=== PATIENT | male | born 1965 ===

== ENCOUNTER 2016-10-28 17:07 | Emergency (ER) | payer MEDICAID, OTHER, SELFPAY ==
[2016-10-28 17:22] VITALS: BP 136/98; PULSE 74; RESP 18; TEMP 97.9; O2SAT 99
--- NOTE | 2016-10-28 17:54 | ED PDOC ---
HPI: Hypertension/Hypotension Time Seen by Provider: 10/28/16 17:15 Chief Complaint (Nursing): High Blood Pressure Chief Complaint (Provider): hypertension, lt sided facial numbness History Per: Patient History/Exam Limitations: no limitations Onset/Duration Of Symptoms: Days, Persistent Current Symptoms Are (Timing): Still Present Additional Complaint(s): The patient is a 51yo male, sent to the ED by clinic for evaluation of hypertension as well as left sided facial numbness. Patient reports he went to the clinic for evaluation of left sided facial numbness, which has been present for the past 6 months. Patient then states when his blood pressure was check, it initially was normal but 30 minutes after his stay in the facility, the blood pressure was elevated, prompting concern to the patient's provider. The patient states he has a history of hypertension but he controlled it with changes in diet and exercise; he denies using any medications for his hypertension. Patient currently denies any chest pain, lightheadedness. He offers no additional medical complaints. Past Medical History Reviewed: Historical Data, Nursing Documentation, Vital Signs Vital Signs: Last Vital Signs Temp 97.9 F 10/28/16 17:16 Pulse 74 10/28/16 17:16 Resp 18 10/28/16 17:16 BP 136/98 H 10/28/16 17:16 Pulse Ox 99 10/28/16 17:16 - Medical History PMH: HTN (controlled w/ exercise and diet) Denies: Asthma, Diabetes - Surgical History Surgical History: No Surg Hx - Family History Family History: States: Unknown Family Hx - Social History Current smoker - smoking cessation education provided: No Alcohol: None Drugs: Denies - Home Medications Home Medications: Ambulatory Orders Medication Instructions Recorded No Known Home Med 10/28/16 - Allergies Allergies/Adverse Reactions: Allergies Allergy/AdvReac Type Severity Reaction Status Date / Time No Known Allergies Allergy Verified 10/28/16 18:12 Review of Systems ROS Statement: Except As Marked, All Systems Reviewed And Found Negative Cardiovascular: Positive for: Other (changes in blood pressure). Negative for: Chest Pain Neurological: Positive for: Other (left sided facial numbness) Physical Exam - Reviewed Nursing Documentation Reviewed: Yes Vital Signs Reviewed: Yes - Physical Exam Appears: Positive for: Well, Non-toxic, No Acute Distress Head Exam: Positive for: ATRAUMATIC, NORMAL INSPECTION, NORMOCEPHALIC Skin: Positive for: Normal Color, Warm, DRY Eye Exam: Positive for: EOMI, Normal appearance, PERRL ENT: Positive for: Normal ENT Inspection Neck: Positive for: Normal, Supple Cardiovascular/Chest: Positive for: Regular Rate, Rhythm Respiratory: Positive for: Normal Breath Sounds. Negative for: Respiratory Distress Gastrointestinal/Abdominal: Positive for: Normal Exam, Soft. Negative for: Tenderness Extremity: Positive for: Normal ROM, Other (5/5 motor strength in all extremities). Negative for: Deformity, Swelling Neurologic/Psych: Positive for: Alert, gear tester II-XII (intact), Oriented, Mood/ Affect (normal), Cerebellar Tests (normal), Gait (normal). Negative for: Motor/ Sensory Deficits, Aphasia, Facial Droop - Laboratory Results Result Diagrams: 10/28/16 18:20 10/28/16 18:20 - ECG O2 Sat by Pulse Oximetry: 99 (RA) Pulse Ox Interpretation: Normal Medical Decision Making Medical Decision Making: Time: 1744 Impression: Hypertension, left sided facial numbness (resolved) Plan: -- CT Head -- Labs Reassess exam is neurologically normal Time: 2030 CT Head Impression: No acute intracranial abnormalities. No significant findings to account for the clinical presentation. Blood pressure improved at 136/98. Patient reports feeling better, states no numbness or tingling stable for discharge home. Advised to follow up with PCP in 1-2 days and referred to neurologist outpt return if symptoms worsen Scribe Attestation: Documented by Mei Winchester acting as a scribe for Radha Iyer MD. Provider Attestation: All medical record entries made by the Scribe were at my direction and personally dictated by me. I have reviewed the chart and agree that the record accurately reflects my personal performance of the history, physical exam, medical decision making, and the department course for this patient. I have also personally directed, reviewed, and agree with the discharge instructions and disposition. Disposition - Clinical Impression Clinical Impression: Hypertension - Patient ED Disposition Is Patient to be Admitted: No Counseled Patient/Family Regarding: Studies Performed, Diagnosis, Need For Followup - Disposition [facility] [Outside] John Lugo MD [Staff Provider] - Disposition: Routine/Home Disposition Time: 19:45 Condition: IMPROVED Additional Instructions: follow up with your primary doctor in 1-2 days also follow up with neurologist as instructed return to the ED with any worsening or concerning symptoms. Instructions: Hypertension (ED)
[2016-10-28 18:44] LABS: BASO % 0.7 % (0.0-2.0); EOS % 0.7 % (0.0-4.0); HEMATOCRIT 44.7 % (35.0-51.0); LYMPH # 2.3 K/uL (1.0-4.3); LYMPH % 41.4 % (20.0-40.0); MEAN CELL VOLUME 90.4 fl (80.0-94.0); MEAN CORPUSCULAR HEMOGLOBIN 30.5 pg (27.0-31.0); MEAN CORPUSCULAR HGB CONC 33.7 g/dL (33.0-37.0); MEAN PLATELET VOLUME 8.2 fl (7.2-11.7); MONO # 0.6 K/uL (0.0-0.8); MONO % 10.7 % (0.0-10.0); NEUT # 2.6 K/uL (1.8-7.0); NEUT % 46.5 % (50.0-75.0); NRBC % 0.1 % (0.0-0.0); RED CELL DISTRIBUTION WIDTH 13.2 % (11.5-14.5); WHITE BLOOD COUNT 5.6 K/uL (4.8-10.8)
[2016-10-28 18:50] LABS: ALB/GLOB RATIO 1.3 (1.0-2.1); ALKALINE PHOSPHATASE 47 U/L (38-126); ALT/SGPT 51 U/L (21-72); AST/SGOT 31 U/L (17-59); BILIRUBIN,TOTAL 0.7 mg/dl (0.2-1.3); BLOOD UREA NITROGEN 18 mg/dl (9-20); CALCIUM 9.7 mg/dL (8.4-10.2); CARBON DIOXIDE 26 mmol/L (22-30); CHLORIDE 107 mmol/L (98-107); GFR AFRICAN-AMERICAN > 60; GLUCOSE,RANDOM 88 mg/dL (75-110); POTASSIUM 4.4 MMOL/L (3.6-5.0); SODIUM 143 mmol/l (132-148); TOTAL PROTEIN 7.8 G/DL (6.3-8.2)
--- NOTE | 2016-10-28 18:59 | CT ---
PROCEDURE: CT HEAD WITHOUT CONTRAST. HISTORY: l face numbness for 6 months COMPARISON: None available. TECHNIQUE: Axial computed tomography images were obtained through the head/brain without intravenous contrast. Radiation dose: Total exam DLP = 782.94 mGy-cm. This CT exam was performed using one or more of the following dose reduction techniques: Automated exposure control, adjustment of the mA and/or kV according to patient size, and/or use of iterative reconstruction technique. FINDINGS: HEMORRHAGE: No intracranial hemorrhage. BRAIN: No mass effect or edema. No atrophy or chronic microvascular ischemic changes. VENTRICLES: Unremarkable. No hydrocephalus. CALVARIUM: Unremarkable. PARANASAL SINUSES: Unremarkable as visualized. No significant inflammatory changes. MASTOID AIR CELLS: Unremarkable as visualized. No inflammatory changes. OTHER FINDINGS: None. IMPRESSION: No acute intracranial abnormalities. No significant findings to account for the clinical presentation.
== END 2016-10-28 20:56 | disposition home or self-care (01) ==
LOC: H.ER 17:07
DX: I10 Essential (primary) hypertension (principal); R20.2 Paresthesia of skin

== ENCOUNTER 2016-11-11 12:56 | Emergency (ER) | payer MEDICAID, OTHER ==
[2016-11-11 13:09] VITALS: BP 125/73; PULSE 67; RESP 16; TEMP 98; O2SAT 100
--- NOTE | 2016-11-11 13:17 | ED PDOC ---
Upper Extremity Pain/Injury Time Seen by Provider: 11/11/16 13:14 Chief Complaint (Nursing): Upper Extremity Problem/Injury Chief Complaint (Provider): right elbow pain History Per: Patient History/Exam Limitations: no limitations Onset/Duration Of Symptoms: Days (x10) Current Symptoms Are (Timing): Still Present Additional Complaint(s): Sheng Macias is a 51 year old male, left-hand dominant, who presents to the emergency department with a complaint of right elbow pain after accidentally hitting it while using tools 10 days ago. Patient has not taken any meds for pain relief since time of injury nor did he seek medical attention at time of injury. He rates current pain as 5/10. PMD: none provided Past Medical History Reviewed: Historical Data, Nursing Documentation, Vital Signs Vital Signs: Last Vital Signs Temp 98.0 F 11/11/16 13:06 Pulse 67 11/11/16 13:06 Resp 16 11/11/16 13:06 BP 125/73 11/11/16 13:06 Pulse Ox 100 11/11/16 13:06 - Medical History PMH: HTN - Surgical History Surgical History: No Surg Hx - Family History Family History: States: No Known Family Hx - Living Arrangements Living Arrangements: With Family - Social History Current smoker - smoking cessation education provided: No Alcohol: None Drugs: Denies - Home Medications Home Medications: Ambulatory Orders Medication Instructions Recorded Ibuprofen [Motrin Tab] 800 mg PO Q8 PRN #20 tab 11/11/16 - Allergies Allergies/Adverse Reactions: Allergies Allergy/AdvReac Type Severity Reaction Status Date / Time No Known Allergies Allergy Verified 11/11/16 13:06 Review of Systems ROS Statement: Except As Marked, All Systems Reviewed And Found Negative Musculoskeletal: Positive for: Other (right elbow pain) Physical Exam - Reviewed Nursing Documentation Reviewed: Yes Vital Signs Reviewed: Yes - Physical Exam Appears: Positive for: Well, Non-toxic, No Acute Distress Neck: Positive for: Painless ROM Cardiovascular/Chest: Positive for: Regular Rate, Rhythm Respiratory: Positive for: Normal Breath Sounds Extremity: Positive for: Normal ROM, Tenderness (right olecranon), Other ( 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 He states motrin helped the pain. See procedure note. Rx motrin given. Patient was referred to ortho hearing care practitioner for follow up. Scribe Attestation: Documented by Kelly Loomis, acting as a scribe for Vickie Sheikh PA-C. Provider Scribe Attestation: All medical record entries made by the Scribe were at my direction and personally dictated by me. I have reviewed the chart and agree that the record accurately reflects my personal performance of the history, physical exam, medical decision making, and the department course for this patient. I have also personally directed, reviewed, and agree with the discharge instructions and disposition. Procedures - Splinting Location: right elbow Pre-Made Type: ave wrap, sling Pre-Proc Neuro Vasc Exam: normal Post-Proc Neuro Vasc Exam: normal Disposition - Clinical Impression Clinical Impression: Elbow sprain - Patient ED Disposition Is Patient to be Admitted: No Counseled Patient/Family Regarding: Studies Performed, Diagnosis, Need For Followup, Rx Given - Disposition Referrals: Trent Molina MD [Staff Provider] - Disposition: Routine/Home Disposition Time: 15:15 Condition: STABLE Additional Instructions: Ice, rest and elevate affected area. Take rx meds as directed as needed for pain. Follow up with orthopedist in 2-3 days. Prescriptions: Ibuprofen [Motrin Tab] 800 mg PO Q8 PRN #20 tab PRN Reason: Pain, Moderate (4-7) Instructions: Elbow Sprain (ED) Forms: [employer] (French)
--- NOTE | 2016-11-11 16:53 | RAD ---
PROCEDURE: Radiographs of the right elbow. HISTORY: trauma COMPARISON: No prior. FINDINGS: BONES: Normal. No fracture. JOINTS: Normal. No osteoarthritis. SOFT TISSUES: Normal. JOINT EFFUSION: None. OTHER FINDINGS: None. IMPRESSION: Unremarkable radiographs of the right elbow.
== END 2016-11-11 15:37 | disposition home or self-care (01) ==
LOC: H.ER 12:56
DX: S59.912A Unspecified injury of left forearm, initial encounter (principal); W22.8XXA Striking against or struck by other objects, initial encounter; Y99.0 Civilian activity done for income or pay

== ENCOUNTER 2017-10-04 11:19 | Emergency (ER) | payer SELFPAY ==
[2017-10-04 11:59] VITALS: BP 123/85; PULSE 71; RESP 18; TEMP 97.3; O2SAT 97
--- NOTE | 2017-10-04 12:23 | ED PDOC ---
History of Present Illness History of Present Illness: 52 year old male presents to the emergency department with complaints of a dry cough for two weeks. He states initially it was just sneezing and nasal congestion that resolved with Zyrtec, but progressed into the cough. Reports on Tuesday he developed mid-sternal chest pain present only with coughing. Pt. states he has no chest pain when he is not coughing. Patient denies taking any other medication for the cough, fever, hemoptysis, shortness of breath, sick contact, and recent travel. PMD: Aleena Gerber HPI: Influenza Time Seen by Provider: 10/04/17 12:03 Chief Complaint: Cough, Cold, Congestion Chief Complaint (Provider): Cough History Per: Patient Exam Limitations: no limitations Have you had recent travel within the past 21 days to any of: No Onset/Duration Of Symptoms: Days (x2 weeks) Sick Contacts (Context): None Past Medical History Reviewed: Historical Data, Nursing Documentation, Vital Signs Vital Signs: Last Vital Signs Temp 97.3 F L 10/04/17 11:56 Pulse 71 10/04/17 11:56 Resp 18 10/04/17 11:56 BP 123/85 10/04/17 11:56 Pulse Ox 97 10/04/17 11:56 - Medical History PMH: HTN, Hyperlipidemia Denies: Asthma, Diabetes - Surgical History Surgical History: No Surg Hx - Family History Family History: States: Unknown Family Hx - Social History Current smoker - smoking cessation education provided: No Alcohol: None Drugs: Denies - Home Medications Home Medications: Ambulatory Orders Medication Instructions Recorded Ibuprofen [Motrin Tab] 800 mg PO Q8 PRN #20 tab 11/11/16 Azithromycin [Zithromax] 250 mg PO DAILY #6 tab 10/04/17 Benzonatate [Tessalon Perle] 100 mg PO Q8 PRN #14 capsule 10/04/17 - Allergies Allergies/Adverse Reactions: Allergies Allergy/AdvReac Type Severity Reaction Status Date / Time No Known Allergies Allergy Verified 11/11/16 13:06 Review of Systems ROS Statement: Except As Marked, All Systems Reviewed And Found Negative Constitutional: Negative for: Fever ENT: Positive for: Nose Congestion (but resolved now), Other (sneezing, but resolved now) Cardiovascular: Negative for: Chest Pain Respiratory: Positive for: Cough (dry). Negative for: Shortness of Breath, Hemoptysis Physical Exam - Reviewed Nursing Documentation Reviewed: Yes Vital Signs Reviewed: Yes - Physical Exam Appears: Positive for: No Acute Distress Head Exam: Positive for: ATRAUMATIC, NORMOCEPHALIC Skin: Positive for: Normal Color, Warm, Dry Eye Exam: Positive for: Normal appearance ENT: Positive for: Normal ENT Inspection Cardiovascular/Chest: Positive for: Regular Rate, Rhythm. Negative for: Murmur Respiratory: Positive for: Normal Breath Sounds. Negative for: Accessory Muscle Use, Wheezing, Respiratory Distress Neurologic/Psych: Positive for: Alert, Oriented (x3). Negative for: Motor/ Sensory Deficits Medical Decision Making Medical Decision Making: Initial Impression: cough Time: 12:08 Initial Plan: --CXR 12:20 CXR was viewed and interpreted by me. Findings show no acute disease. Patient made aware of results and is stable for discharge. Scribe Attestation: Documented by Sonali Maki, acting as a scribe for Kirill Stuart PA-C. Provider Scribe Attestation: All medical entries made by the Scribe were at my direction and personally dictated by me. I have reviewed the chart and agree that the record accurately reflects my personal performance of the history, physical exam, medical decision making, and the department course for this patient. I have also personally directed, reviewed, and agree with the discharge instructions and disposition. - ECG O2 Sat by Pulse Oximetry: 97 (RA) Pulse Ox Interpretation: Normal - Radiology X-Ray: Interpreted by Me, Viewed By Me X-Ray Interpretation: No Acute Disease Disposition - Clinical Impression Clinical Impression: Cough - Patient ED Disposition Is Patient to be Admitted: No - Disposition Referrals: [facility] [Outside] [facility] [Outside] Disposition: Routine/Home Disposition Time: 12:22 Condition: STABLE Additional Instructions: Follow up with [facility] for further evaluation. Return to ED immediately if symptoms worsen. Prescriptions: Azithromycin [Zithromax] 250 mg PO DAILY #6 tab Benzonatate [Tessalon Perle] 100 mg PO Q8 PRN #14 capsule PRN Reason: Cough Instructions: Cough, Adult (DC) Forms: [facility] (Kiswahili) Print Language: TAJIK
--- NOTE | 2017-10-04 13:56 | RAD ---
HISTORY: Cough. COMPARISON: No prior. TECHNIQUE: Chest PA and lateral FINDINGS: LUNGS: No active pulmonary disease. PLEURA: No significant pleural effusion identified. No pneumothorax apparent. CARDIOVASCULAR: No radiographic findings to suggest acute or significant cardiovascular disease. OSSEOUS STRUCTURES: No significant abnormalities. VISUALIZED UPPER ABDOMEN: Normal. OTHER FINDINGS: None. IMPRESSION: No active disease.
== END 2017-10-04 12:32 | disposition home or self-care (01) ==
LOC: H.ER 11:19
DX: R05 Cough (principal); E78.5 Hyperlipidemia, unspecified; I10 Essential (primary) hypertension

== ENCOUNTER 2017-11-08 15:54 | Emergency (ER) | payer OTHER, SELFPAY ==
[2017-11-08 16:01] VITALS: BP 142/88; PULSE 85; RESP 20; TEMP 98.8; O2SAT 100
--- NOTE | 2017-11-08 16:18 | ED PDOC ---
History of Present Illness History of Present Illness: 52 y/o male with no significant PMHx presents to the ED complaining of an intermittent cough associated with a foreign body sensation in the throat, onset two months ago. Patient states he was seen here in the ED approximately three weeks ago and discharged home with Z.pack and Tessalon pearls which he took with transient relief. Patient reports medications helped him at times but was given a little amount and therefore unable to continue taking it. At his last visit here in the ER, patient reports scans were performed which resulted normal. Patient states cough worsens when air conditioning is on. Denies allergies, smoking, heartburn, palpitations, chest pain, and hemoptysis. PMD: None Provided HPI: Influenza Time Seen by Provider: 11/08/17 15:58 Chief Complaint: Cough, Cold, Congestion Chief Complaint (Provider): Cough, Cold, Congestion History Per: Patient Exam Limitations: no limitations Onset/Duration Of Symptoms: Days, Waxing/Waning Symptoms include: denies: chest pain Past Medical History Reviewed: Historical Data, Nursing Documentation, Vital Signs Vital Signs: Last Vital Signs Temp 98.8 F 11/08/17 15:59 Pulse 85 11/08/17 15:59 Resp 20 11/08/17 15:59 BP 142/88 11/08/17 15:59 Pulse Ox 100 11/08/17 15:59 - Medical History PMH: HTN, Hyperlipidemia Denies: Asthma, Diabetes - Surgical History Surgical History: No Surg Hx - Family History Family History: States: Unknown Family Hx - Social History Current smoker - smoking cessation education provided: No - Home Medications Home Medications: Ambulatory Orders Medication Instructions Recorded Ibuprofen [Motrin Tab] 800 mg PO Q8 PRN #20 tab 11/11/16 Azithromycin [Zithromax] 250 mg PO DAILY #6 tab 10/04/17 Benzonatate [Tessalon Perle] 100 mg PO Q8 PRN #14 capsule 10/04/17 Fluticasone Propionate [Flonase] 1 spr NS BID #1 spr 11/08/17 Methylprednisolone [Medrol Dose 4 mg PO DAILY #21 mg 11/08/17 Pack (21 tabs)] - Allergies Allergies/Adverse Reactions: Allergies Allergy/AdvReac Type Severity Reaction Status Date / Time No Known Allergies Allergy Verified 11/08/17 15:56 Review of Systems ROS Statement: Except As Marked, All Systems Reviewed And Found Negative Cardiovascular: Negative for: Chest Pain, Palpitations Respiratory: Positive for: Cough. Negative for: Hemoptysis Physical Exam - Reviewed Nursing Documentation Reviewed: Yes - Physical Exam Appears: Positive for: Well, No Acute Distress Head Exam: Positive for: ATRAUMATIC, NORMOCEPHALIC Skin: Positive for: Normal Color, Warm, Dry Eye Exam: Positive for: Normal appearance, EOMI, PERRL ENT: Positive for: Normal ENT Inspection Neck: Positive for: Normal, Painless ROM Cardiovascular/Chest: Positive for: Regular Rate, Rhythm. Negative for: Murmur Respiratory: Positive for: Normal Breath Sounds. Negative for: Respiratory Distress Extremity: Positive for: Normal ROM. Negative for: Pedal Edema, Deformity Neurologic/Psych: Positive for: Alert, Oriented (x3). Negative for: Motor/ Sensory Deficits Medical Decision Making Medical Decision Making: Time: 1612 Plan: -- CXR (PA&LAT) XR CXR was viewed and interpreted by me. Findings show no acute disease. Patient made aware of results and is stable for discharge. Scribe Attestation: Documented by Leia Dupont, acting as a scribe for Vickie Diane PA-C. Provider Scribe Attestation: All medical record entries made by the Scribe were at my direction and personally dictated by me. I have reviewed the chart and agree that the record accurately reflects my personal performance of the history, physical exam, medical decision making, and the department course for this patient. I have also personally directed, reviewed, and agree with the discharge instructions and disposition. - ECG ECG Rhythm: Positive for: Sinus Rhythm. Negative for: ST/T Changes Interpretation Of Abn EKG: No Bouse Deviation O2 Sat by Pulse Oximetry: 100 (RA) Pulse Ox Interpretation: Normal Disposition - Clinical Impression Clinical Impression: Chronic cough, Post-nasal drip - Patient ED Disposition Is Patient to be Admitted: No - Disposition Disposition: Routine/Home Disposition Time: 17:55 Condition: STABLE Prescriptions: Fluticasone Propionate [Flonase] 1 spr NS BID #1 spr Methylprednisolone [Medrol Dose Pack (21 tabs)] 4 mg PO DAILY #21 mg Instructions: Cough, Adult (DC) Forms: [facility] (Serbian)
--- NOTE | 2017-11-08 17:46 | RAD ---
Date of service: 11/08/2017 HISTORY: chronic cough 2 months COMPARISON: Chest radiograph dated 10/04/2017 TECHNIQUE: Chest PA and lateral FINDINGS: LUNGS: No active pulmonary disease. PLEURA: No significant pleural effusion identified. No pneumothorax apparent. CARDIOVASCULAR: Normal. OSSEOUS STRUCTURES: No significant abnormalities. VISUALIZED UPPER ABDOMEN: Normal. OTHER FINDINGS: None. IMPRESSION: No active disease.
== END 2017-11-08 17:25 | disposition home or self-care (01) ==
LOC: H.ER 15:54
DX: R05 Cough (principal); R09.82 Postnasal drip; E78.5 Hyperlipidemia, unspecified; I10 Essential (primary) hypertension